=== PATIENT | male | born 1965 | race Caucasian/White ===

== ENCOUNTER → 2016-05-18 | Outpatient (CLI) | payer OTHER ==
[2016-05-18 11:52] LABS: Blood Urea Nitrogen 22 mg/dL (9-20); Non-African American GFR(MDRD) >60 (>60 ml/min/1.73 sqM)
--- NOTE | 2016-05-18 13:02 | CT ---
EXAMINATION TYPE: CT abdomen wo/w con DATE OF EXAM: 05/18/2016 12:33 PM COMPARISON: NONE HISTORY: Renal hematoma per order. Injury [address] DLP: 890 mGycm, Automated Exposure Control for Dose Reduction was Utilized. CONTRAST: CT scan of the abdomen and pelvis is performed with oral and with IV Contrast, patient injected with 100 mL of Omnipaque 300. FINDINGS: Patient has very little intra-abdominal fat making evaluation suboptimal. LUNG BASES: No significant abnormality is appreciated. LIVER/GB: No significant abnormality is appreciated. PANCREAS: No significant abnormality is seen. SPLEEN: No significant abnormality is seen. ADRENALS: No significant abnormality is seen. KIDNEYS: There are areas of absent perfusion with cortical atrophy involving the anterior aspect lowe r pole right kidney and involving portion of the anterior pole upper right kidney consistent with are as of infarction or scarring. BOWEL: Occasional diverticula is seen in the right colon. Some prominence of fecal material in the ri ght colon is present. Percutaneous PEG tube is present. PROSTATE/SEMINAL VESICLES: No gross abnormality seen. LYMPH NODES: No greater than 1cm abdominal or pelvic lymph nodes are appreciated. OSSEOUS STRUCTURES: Moderate multilevel spurring in the thoracolumbar spine is present. OTHER: No significant additional abnormality is seen. 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
--- NOTE | 2016-05-18 13:13 | FL ---
EXAMINATION TYPE: FL barium swallow w video DATE OF EXAM: 05/18/2016 12:51 PM MODIFIED SWALLOW / DEGLUTITION STUDY CLINICAL HISTORY: Dysphagia. 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 TECHNIQUE: Deglutition study is performed utilizing thin liquid barium, honey and nectar thick liqui d barium, and barium thick applesauce. A total of 2 minutes 55 seconds of fluoroscopic time was utili zed during procedure. COMPARISON: None. FINDINGS: There is anterior fusion plate C4-C5 level seen. There is grade 1 anterolisthesis C2 on C3 noted. The oral and pharyngeal phases show satisfactory initiation with all modalities tested. Some e piglottis dysmotility is present. There is penetration with multiple modalities including attempted c hin turn and chin tuck procedure. Moderate to severe pharyngeal residuals were appreciated. There is silent aspiration of residuals which does not initiate cough reflex. IMPRESSION: Significant residuals with penetration and silent aspiration with less viscous modalities . Please refer to speech therapist notes for further details if necessary.
== END | disposition home or self-care (01) ==
LOC: RADFLWHC 10:52
PROVIDERS: ATTEND Internal Medicine
DX: N28.89 Other specified disorders of kidney and ureter (principal); J38.00 Paralysis of vocal cords and larynx, unspecified
CPT/HCPCS: 92611; 82565; 84520; 74230; 74170; 36415; Q9967

== ENCOUNTER → 2017-02-16 | Outpatient (CLI) | payer OTHER ==
--- NOTE | 2017-02-16 14:16 | FL ---
Modified barium swallow. HISTORY: Dysphagia. COMPARISON: 12/02/2016 Modified barium swallow was performed with the department of speech pathology. The patient was prese nted with various consistencies of barium. MBS preformed Pat and Dr. Erazo. 1 minute, 33 secs flu mary. Thin, thick, and pudding No evidence for aspiration during the course of the examination. Note is made of the deep and transie nt penetration with various consistencies of barium. Pooling noted within the valleculae and piriform sinuses essentially unchanged from prior examination. Full report is to follow from the department o f speech pathology. Impression: Stable examination.
== END | disposition home or self-care (01) ==
LOC: RADFLMAIN 09:28
PROVIDERS: ATTEND Psychiatry & Neurology Clinical Neurophysiology
DX: R13.13 Dysphagia, pharyngeal phase (principal); Z87.820 Personal history of traumatic brain injury
CPT/HCPCS: 74230

== ENCOUNTER 2017-02-21 10:45 | Emergency (ER) | payer OTHER ==
[2017-02-21 10:54] VITALS: BP 102/72; PULSE 80; RESP 18; TEMP 98.4
--- NOTE | 2017-02-21 11:04 | ED ---
General Adult HPI - General Chief complaint: Recheck/Abnormal Lab/Rx Stated complaint: Med refill Time Seen by Provider: 02/21/17 10:54 Source: patient, RN notes reviewed Mode of arrival: ambulatory Limitations: no limitations - History of Present Illness Initial comments: 51 yo male presents to the ER with cc of wanting his chronic pain medication prescription refill. He states that he took too many of his prescription medication to quickly and now he is out of them. She does not have a follow-up appointment until Monday with his doctor and he referred him here to get a refill. There has been no other symptoms. He states he is afraid to go through the gauze. He denies any nausea vomiting with this. He states that he just needs something to help get him through.Patient denies any recent fever, chills, shortness of breath, chest pain, back pain, abdominal pain, nausea vomiting, numbness or tingling, dysuria or hematuria, constipation or diarrhea, headaches or visual changes, or any other current symptoms. - Related Data Allergies Allergy/AdvReac Type Severity Reaction Status Date / Time No Known Allergies Allergy Verified 02/21/17 10:54 Review of Systems ROS Statement: Those systems with pertinent positive or pertinent negative responses have been documented in the HPI. ROS Other: All systems not noted in ROS Statement are negative. Past Medical History Past Medical History: CVA/TIA, Diabetes Mellitus, Seizure Disorder Additional Past Medical History / Comment(s): cervical fx, bulging disc History of Any Multi-Drug Resistant Organisms: None Reported Past Surgical History: Orthopedic Surgery Additional Past Surgical History / Comment(s): left femur surgery, knee and hip surgery Past Psychological History: No Psychological Hx Reported Smoking Status: Never smoker Past Alcohol Use History: None Reported Past Drug Use History: None Reported General Exam Limitations: no limitations General appearance: alert, in no apparent distress Neck exam: Present: normal inspection Respiratory exam: Present: normal lung sounds bilaterally. Absent: respiratory distress, wheezes, rales, rhonchi, stridor Cardiovascular Exam: Present: regular rate, normal rhythm, normal heart sounds. Absent: systolic murmur, diastolic murmur, rubs, gallop, clicks Neurological exam: Present: alert, oriented X3 Psychiatric exam: Present: normal affect, normal mood Skin exam: Present: warm, dry, intact, normal color. Absent: rash Course Vital Signs 02/21/17 10:49 Temperature 98.4 F Pulse Rate 80 Respiratory 18 Rate Blood Pressure 102/72 O2 Sat by Pulse 100 Oximetry Medical Decision Making - Medical Decision Making 51-year-old male presents to the emergency Department chief complaint of wanting his chronic pain medications refill. He openly admits finishing them too early. A maps report was ran that does show he still should have 10 days left of his prescription. We discussed he will not be refilling these. We discussed the could give him nonnarcotic medication to help with his discomfort. He states he does not want this. We discussed follow-up with his doctor. We discussed return parameters all questions. He stated he understood. He will be discharged. Disposition Clinical Impression: Encounter for medication refill Disposition: HOME SELF-CARE Condition: Stable Instructions: Chronic Pain (ED) Additional Instructions: Please use medication as discussed. Please follow up with family doctor if symptoms have not improved over the next two days. Please return to the emergency room if your symptoms increase or worsen or for any other concerns. Referrals: Geovanni Sosa MD [Primary Care Provider] - 1-2 days Time of Disposition: 11:03
== END 2017-02-21 11:13 | disposition home or self-care (01) ==
LOC: EC 10:45
DX: Z76.0 Encounter for issue of repeat prescription (principal)
CPT/HCPCS: 99281

== ENCOUNTER → 2017-04-06 | Outpatient (CLI) | payer OTHER ==
--- NOTE | 2017-04-06 11:41 | FL ---
Modified barium swallow. HISTORY: Dysphagia. Modified barium swallow was performed with the department of speech pathology. The patient was prese nted with various consistencies of barium. Transient penetration with thin liquid barium. No evidence for aspiration. Residuals noted. Full repo rt is to follow from the department of speech pathology. Impression: Transient penetration with thin liquid barium. No evidence for aspiration.
== END | disposition home or self-care (01) ==
LOC: RADFLMAIN 10:48
PROVIDERS: ATTEND Psychiatry & Neurology Clinical Neurophysiology
DX: R13.13 Dysphagia, pharyngeal phase (principal)
CPT/HCPCS: 74230

== ENCOUNTER 2017-04-22 15:10 | Emergency (ER) | payer OTHER ==
[2017-04-22 15:30] VITALS: RESP 16; TEMP 97.9
[2017-04-22] MEDS ORDERED: HYDROcodone/APAP 5-325MG 1 EACH TAB PO STA (15:56)
[2017-04-22 16:01] LABS: Glucose,Whole Blood 123 mg/dL (75-99)
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
[2017-04-22 16:47] VITALS: BP 156/65; PULSE 100
== END 2017-04-22 16:46 | disposition home or self-care (01) ==
LOC: EC 15:10
DX: M79.672 Pain in left foot (principal); M79.671 Pain in right foot; M21.42 Flat foot [pes planus] (acquired), left foot; M21.41 Flat foot [pes planus] (acquired), right foot; E11.9 Type 2 diabetes mellitus without complications; G40.909 Epilepsy, unspecified, not intractable, without status epilepticus; Z87.39 Personal history of other diseases of the musculoskeletal system and connective tissue; Z79.82 Long term (current) use of aspirin; Z79.899 Other long term (current) drug therapy; Z93.1 Gastrostomy status
CPT/HCPCS: 36415; 99284

== ENCOUNTER 2017-04-22 22:15 | Emergency (ER) | payer OTHER ==
[2017-04-22] MEDS ORDERED: ASPIRIN 81 MG PO STA (22:36)
[2017-04-22 22:48] LABS: Basophils % (A) 0 %; Eosinophils # (A) 0.1 k/uL (0-0.7); Eosinophils % (A) 0 %; HCT 43.8 % (39.0-53.0); HGB 14.4 gm/dL (13.0-17.5); Lymphocytes # (A) 2.6 k/uL (1.0-4.8); Lymphocytes % (A) 13 %; MCH 28.6 pg (25.0-35.0); MCHC 32.8 g/dL (31.0-37.0); MCV 87.1 fL (80.0-100.0); Mean Platelet Volume 6.4; Monocytes # (A) 0.4 k/uL (0-1.0); Monocytes % (A) 2 %; Neutrophils # (A) 16.5 k/uL (1.3-7.7); Neutrophils % (A) 84 %; Platelet Count 574 k/uL (150-450); RBC 5.03 m/uL (4.30-5.90); RDW 14.4 % (11.5-15.5); WBC 19.6 k/uL (3.8-10.6)
--- NOTE | 2017-04-22 22:54 | XR ---
EXAMINATION TYPE: XR chest 1V portable DATE OF EXAM: 04/22/2017 COMPARISON: None HISTORY: Chest pain TECHNIQUE: Single frontal view of the chest is obtained. FINDINGS: There is no heart failure nor confluent pneumonic infiltrate. Heart size is normal. There is no pleural effusion. Bony thorax is intact. The pulmonary vascularity is normal. There are chest l jluis. IMPRESSION: Normal chest.
[2017-04-22 22:58] LABS: ALT 33 U/L (21-72); AST 21 U/L (17-59); Alkaline Phosphatase 98 U/L (38-126); Anion Gap 21 mmol/L; Blood Urea Nitrogen 19 mg/dL (9-20); Calcium 10.1 mg/dL (8.4-10.2); Carbon Dioxide 19 mmol/L (22-30); Chloride 104 mmol/L (98-107); Glucose 178 mg/dL (74-99); Magnesium 1.8 mg/dL (1.6-2.3); Potassium 4.6 mmol/L (3.5-5.1); Sodium 144 mmol/L (137-145); Total Bilirubin 0.5 mg/dL (0.2-1.3); Total Protein 8.6 g/dL (6.3-8.2)
[2017-04-22 22:59] LABS: D-Dimer 1.31 mg/L FEU (<0.60)
[2017-04-22 23:03] LABS: INR 1.1 (<1.2); Prothrombin Time 10.8 sec (9.0-12.0)
[2017-04-22 23:07] LABS: Creatine Kinase 89 U/L (55-170)
[2017-04-22 23:10] LABS: Partial Thromboplastin Time 22.1 sec (22.0-30.0)
[2017-04-22] MEDS ORDERED: RX INFO: IV CONTRAST WAS GIVEN 1 EACH MISC MISCELLANE PRN (23:17)
[2017-04-22 23:21] LABS: Creatine Kinase MB 1.7 ng/mL (0.0-2.4); Troponin I <0.012 ng/mL (0.000-0.034)
--- NOTE | 2017-04-23 00:06 | CT ---
EXAMINATION TYPE: CT chest angio for PE DATE OF EXAM: 04/22/2017 COMPARISON: NONE HISTORY: PE CT DLP: 303.20 mGycm Automated exposure control for dose reduction was used. CONTRAST: CT Chest for pulmonary embolism performed with with IV Contrast, patient injected with 70 mL of Omnip aque 350. FINDINGS: There are 3-D post processed images. There is normal branching pattern of the great vessels on the aortic arch. There is no sign of aneury sm or dissection. Ascending aorta measures 3.4 cm. I see no filling defects in the pulmonary arteries. There is no mediastinal adenopathy. There are no hilar masses. The lungs are clear of consolidation. There is no evidence of a pulmonary mass. The bon y thorax is intact. There is mild spurring in the thoracic spine. There is small linear density at th e left posterior lung base. IMPRESSION: Mild scarring or subsegmental atelectasis at the left lung base. No evidence of pulmonary embolism.
[2017-04-23 00:42] VITALS: RESP 18
--- NOTE | 2017-04-23 01:18 | ED ---
Chest Pain HPI - General Chief Complaint: Chest Pain Stated Complaint: chest pain Time Seen by Provider: 04/22/17 22:31 Source: patient Mode of arrival: ambulatory Limitations: no limitations - History of Present Illness Initial Comments: 's patient is a 51-year-old man presenting to be evaluated for chest pain. The patient had been seen here earlier in the day for bilateral foot pain. He had had a prescription for [place] filled and then was discharged. The patient then had been sleeping in the lobby here while waiting for someone to come and pick him up to take him home. He had reportedly been sleeping for a couple of hours and then woke up with substernal chest pain that he describes as constant, severe, and without any worsening or relieving factors. MD Complaint: chest pain -: minutes(s) Onset: awoke with symptoms Pain Location: substernal Pain Radiation: none Severity: severe Quality: aching Consistency: constant Improves With: nothing Worsens With: nothing Anginal Symptoms: nausea Treatments Prior to Arrival: none - Related Data Home Medications Medication Instructions Recorded Confirmed Aspirin EC [Ecotrin] 325 mg PO DAILY 04/22/17 04/22/17 Atorvastatin [Lipitor] 40 mg PO DAILY 04/22/17 04/22/17 Bisacodyl [Dulcolax] 10 mg RECTAL HS 04/22/17 04/22/17 Cyclobenzaprine [Flexeril] 10 mg PO TID 04/22/17 04/22/17 Diazepam [Valium] 10 mg PO BID 04/22/17 04/22/17 HYDROcodone/APAP 10-325MG [[place] 1 tab PO QID PRN 04/22/17 04/22/17 10-325] Omeprazole [PriLOSEC] 20 mg PO DAILY 04/22/17 04/22/17 Phenytoin Oral Susp [Dilantin Oral 125 mg PO TID 04/22/17 04/22/17 Susp] Testosterone Cypionate 200 mg IM Q14D 04/22/17 04/22/17 [Depo-Testosterone] Verapamil HCl [Calan] 80 mg PO BID 04/22/17 04/22/17 Zolpidem Tartrate [Ambien] 10 mg PO HS 04/22/17 04/22/17 metFORMIN HCL 1,000 mg PO BID 04/22/17 04/22/17 Allergies Allergy/AdvReac Type Severity Reaction Status Date / Time No Known Allergies Allergy Verified 04/22/17 22:23 Review of Systems ROS Statement: Those systems with pertinent positive or pertinent negative responses have been documented in the HPI. ROS Other: All systems not noted in ROS Statement are negative. Constitutional: Denies: fever, chills, weakness Respiratory: Denies: cough, dyspnea Cardiovascular: Reports: as per HPI, chest pain, palpitations. Denies: dyspnea on exertion, orthopnea, edema, syncope Gastrointestinal: Reports: nausea. Denies: abdominal pain, vomiting, diarrhea Genitourinary: Denies: dysuria, hematuria Musculoskeletal: Denies: back pain Skin: Denies: rash Neurological: Denies: headache, weakness, numbness Psychiatric: Reports: anxiety EKG Findings - EKG Results: EKG: interpreted by STACY, sinus rhythm, normal axis, normal QRS EKG shows: tachycardia (Rate approximately 119 bpm) - Blocks, [place], Hypertrophy, ST Abn: Repolarization changes or abnormalities: nonspecific abnormality, ST segment, and/or T wave Past Medical History Past Medical History: CVA/TIA, Diabetes Mellitus, Seizure Disorder Additional Past Medical History / Comment(s): cervical fx, bulging disc History of Any Multi-Drug Resistant Organisms: None Reported Past Surgical History: Orthopedic Surgery Additional Past Surgical History / Comment(s): left femur surgery, knee and hip surgery Past Psychological History: No Psychological Hx Reported Smoking Status: Never smoker Past Alcohol Use History: None Reported Past Drug Use History: None Reported General Exam Limitations: no limitations General appearance: alert, in no apparent distress, anxious Head exam: Present: atraumatic, normocephalic Eye exam: Present: normal appearance. Absent: scleral icterus, conjunctival injection ENT exam: Present: normal oropharynx Neck exam: Present: normal inspection Respiratory exam: Present: normal lung sounds bilaterally, chest wall tenderness. Absent: respiratory distress, wheezes, rales, rhonchi, stridor Cardiovascular Exam: Present: normal rhythm, tachycardia (Rate is approximately 112 at my exam), normal heart sounds. Absent: systolic murmur, diastolic murmur GI/Abdominal exam: Present: soft. Absent: distended, tenderness, guarding, rebound, rigid, mass Extremities exam: Present: normal inspection, normal capillary refill. Absent: pedal edema, calf tenderness Back exam: Present: normal inspection. Absent: CVA tenderness (R), CVA tenderness (L) Neurological exam: Present: alert Skin exam: Present: warm, dry, intact, normal color. Absent: rash Course Vital Signs 04/22/17 04/22/17 04/22/17 22:16 22:41 23:21 Temperature 98 F Pulse Rate 129 H 120 H Respiratory 20 20 20 Rate Blood Pressure 110/68 139/76 O2 Sat by Pulse 98 98 Oximetry 04/23/17 04/23/17 04/23/17 00:40 01:53 02:24 Temperature 97.5 F L Pulse Rate 112 H 119 H 116 H Respiratory 18 18 18 Rate Blood Pressure 185/80 150/84 134/77 O2 Sat by Pulse 99 98 99 Oximetry Disposition Clinical Impression: Chest pain Disposition: HOME SELF-CARE Condition: Good Instructions: Chest Pain (ED) Referrals: Geovanni Sosa MD [Primary Care Provider] - 1-2 days
[2017-04-23 02:28] VITALS: BP 134/77; PULSE 116; TEMP 97.5
== END 2017-04-23 02:24 | disposition home or self-care (01) ==
LOC: EC 22:15
DX: R07.2 Precordial pain (principal); M79.672 Pain in left foot; M79.671 Pain in right foot; E11.9 Type 2 diabetes mellitus without complications; G40.909 Epilepsy, unspecified, not intractable, without status epilepticus; Z86.73 Personal history of transient ischemic attack (TIA), and cerebral infarction without residual deficits; Z79.82 Long term (current) use of aspirin; Z79.84 Long term (current) use of oral hypoglycemic drugs; Z79.899 Other long term (current) drug therapy
CPT/HCPCS: 36415 ×2; 93005; 85379; 80053; 82550; 82553; 83735; 84484 ×2; 85025; 85610; 85730; 71045; 71275; 99285; Q9967